=== PATIENT | male | born 1985 | race Caucasian/White ===

== ENCOUNTER → 2019-05-28 | Outpatient (CLI) | payer OTHER ==
--- NOTE | 2019-05-31 15:20 | SLEEP ---
[address] [address] SLEEP STUDY REPORT Name: DALE VILLATORO Room: [facility]#: [id number] Admission: 05/28/19 Attend Phys: Eric Medina MD Discharge: Date of : 89 Report #: [id number] THIS REPORT FOR: //name// CC: ERIC Medina FAM unknown This study has been reviewed in its entirety by a board certified sleep specialist DATE OF SERVICE: 05/28/2019 REFERRING PHYSICIAN: Dr. Eric Medina. The patient is a 33-year-old who weighs 300 pounds with a BMI of 40.7. The patient underwent a split night study performed at [facility]. During the night study, the patient spent 450 minutes in bed and slept for 350 minutes with a sleep efficiency of 77%. Sleep latency was 35.1 minutes with a REM latency of 141 minutes. Overall, sleep architecture showed normal stage 1 and stage 2 sleep, increased slow wave and normal REM sleep. During the initial diagnostic portion of the study, the patient slept for 102 minutes. During that time, there were 3 obstructive apneas, no mixed or central apneas and 88 hypopneas. The patient's apnea hypopnea index was 53 per hour with a REM index of 124 per hour and a supine index of 53 per hour. EKG monitoring revealed average heart rate of 73 beats per minute. No sustained arrhythmias observed. PLMS were seen at an index of 29 per hour and 15 per hour caused EEG arousals. Nocturnal oximetry study revealed an average oxygen saturation of 93% with lowest of 66%. Seven minutes were spent in oxygen saturation less than 89% and another 3 minutes with saturation of less than 79%. The patient met the criteria for CPAP initiation. It was started at 5 cm water and titrated up to 15 cm of water. At the final pressure, the patient slept for 29 minutes. The patient had supine and REM sleep. 25 minutes of REM sleep was observed. The patient's AHI was reduced to 4 per hour and oxygen saturation remained above 90%. IMPRESSION: 1. Severe sleep apnea-hypopnea syndrome at an AHI of 53 per hour with a REM AHI of 124 per hour. 2. Nocturnal hypoxia secondary to obstructive sleep apnea, [place] [address] SLEEP STUDY REPORT Name: DALE VILLATORO Room: [facility]#: [id number] Admission: 05/28/19 Attend Phys: Eric Medina MD Discharge: Date of : 89 Report #: [id number] CPAP. 3. Moderate periodic limb movements. RECOMMENDATIONS: 1. CPAP at 15 cm water completely eliminated the patient's sleep apnea and should be used on a nightly basis. 2. Follow up in 4-6 weeks to assess compliance with CPAP and to document clinical improvement. 3. Weight loss is strongly advised. 4. Avoid [employer] depressants. 5. Cautioned regarding driving until symptoms of sleep apnea resolve with the use of CPAP. 6. PLMS can be treated with dopaminergic agonist agents if the patient is clinically symptomatic. The patient should also be further evaluated for symptoms of restless legs during the day. <ELECTRONICALLY SIGNED> By: Joaquín Pennington MD 05/31/19 1520 1831 2025Anorth [place] Edward Pennington MD /nt
== END ==
LOC: M.SLEEPLAB 19:57
DX: G47.33 Obstructive sleep apnea (adult) (pediatric) (principal); G47.34 Idiopathic sleep related nonobstructive alveolar hypoventilation